=== PATIENT | female | born 1980 | race Caucasian/White ===

== ENCOUNTER 2022-09-08 09:48 | Emergency (ER) | payer OTHER ==
--- NOTE | 2022-09-08 09:57 | ED Physician Documentation ---
History of Present Illness - Stated complaint Stated Complaint: EXPOSURE - History obtained from History obtained from: Patient - History of Present Illness Timing: How many days ago (2) Quality: Here for post exposure prophylaxis to pertussis that occured at work here. Directed to ER by admin. Review of Systems Constitutional: denies: Fever, Chills Respiratory: denies: Cough PD PAST MEDICAL HISTORY - Present Medications Home Medications: Ambulatory Orders Medication Instructions Recorded Confirmed Azithromycin [Zithromax] 0 mg PO DAILY #6 tablet 09/08/22 Etanercept [Enbrel] 50 mg SQ Q7D 09/08/22 09/08/22 - Allergies Allergies/Adverse Reactions: Allergies Allergy/AdvReac Type Severity Reaction Status Date / Time cephalexin [From Keflex] Allergy Hives Verified 09/08/22 10:03 PD ED PE NORMAL - Vitals Vital signs reviewed: Yes - General General: Alert and oriented X 3, No acute distress, Well developed/nourished Results - Vitals Vitals: Vital Signs - 24 hr 09/08/22 10:04 Temperature 36.6 C Heart Rate 63 Respiratory 16 Rate Blood Pressure 113/79 O2 Saturation 99 Oxygen O2 Source Room air PD Medical Decision Making - ED course Complexity details: considered differential (Here for post exposure prophylaxis to pertussis that occured at work here. Directed to ER by admin.), d/w patient Departure - Departure Disposition: 01 Home, Self Care Clinical Impression: Pertussis exposure Condition: Stable Record reviewed to determine appropriate education?: Yes Prescriptions: Azithromycin [Zithromax] 0 mg PO DAILY #6 tablet Comments: Zithromax as directed with food. I sent to script to [facility] pharmacy. This should reduce the chance of developing pertussis. Discharge Date/Time: 09/08/22 10:27
[2022-09-08 10:09] VITALS: BP 113/79
== END 2022-09-08 10:27 | disposition home or self-care (01) ==
LOC: ED 09:48
DX: Z20.818 Contact with and (suspected) exposure to other bacterial communicable diseases (principal)
CPT/HCPCS: 99281; 99283